=== PATIENT | female | born 1990 | race Two or more races ===

== ENCOUNTER 2017-04-23 08:29 | Emergency (ER) | payer OTHER ==
[~2017-04-23] VITALS: Ht 157.5 cm; Wt 57.6 kg
[~2017-04-23 08:29] MED LIST: SEPTRA DS TABLE1 TAB PO
[2017-04-23] MEDS ORDERED: OSEL75CA PO (10:57)
[2017-04-23] MEDS ORDERED: TUSSI PRES-B L120 M1 PO (10:57)
[2017-04-23] MEDS ORDERED: MEDROLPACK PO (10:57)
== END 2017-04-23 12:32 | disposition home or self-care (01) ==
LOC: ER 08:29
DX: J11.1 Influenza due to unidentified influenza virus with other respiratory manifestations (principal); B34.9 Viral infection, unspecified

== ENCOUNTER 2022-02-27 11:36 | Emergency (ER) | payer OTHER ==
[~2022-02-27] VITALS: Ht 157.5 cm; Wt 55.3 kg
[~2022-02-27 11:36] MED LIST changes: +MEDROLPACK PO; +OSEL75CA PO; +TUSSI PRES-B L120 M1 PO
[2022-02-27] MEDS ORDERED: BUDEO.25 IH (11:46)
[2022-02-27] MEDS ORDERED: DECADRON4 MG PO (11:47)
[2022-02-28] MEDS ORDERED: SYMBICORT 16010.2 GM IH (10:39)
[2022-02-28] MEDS ORDERED: IPRAT-ALBUT 0.5-3 ML IH (10:39)
[2022-02-28] MEDS ORDERED: SINGULAIR 10MG10 MG PO (10:39)
[2022-02-28] MEDS ORDERED: TESSALON PERLES PO (10:39)
[2022-02-28] MEDS ORDERED: TUSSI-PRES B LIQ5 ML PO (10:39)
== END 2022-02-28 11:35 | disposition home or self-care (01) ==
LOC: ER 11:36
DX: J45.901 Unspecified asthma with (acute) exacerbation (principal); Z20.828 Contact with and (suspected) exposure to other viral communicable diseases